=== PATIENT | male | born 1945 | race Caucasian/White ===

== ENCOUNTER 2020-07-29 11:06 | Emergency (ER) | payer OTHER, MEDICARE ==
--- NOTE | 2020-07-29 11:51 | ER Document Report ---
ED Medical Screen (RME) - General Chief Complaint: Penile Pain Stated Complaint: PENILE PAIN,SWELLING Time Seen by Provider: 07/29/20 11:44 - HPI Notes: 07/29/20 11:49 74-year-old male was not circumcised presents to emergency room today for having penile pain with urination urinary retention with a semierect penis for the last 4 days after he has been able to retract the foreskin after cleaning. Patient denies any male enhancement medications. Reports his last bowel movement was a few days ago which is normal for him. Patient reports pain is 3-5, throbbing achy. Reports he is having dysuria with urination I have greeted and performed a rapid initial assessment of this patient. A comprehensive ED assessment and evaluation of the patient, analysis of test results and completion of the medical decision making process will be conducted by additional ED providers. PHYSICAL EXAMINATION: GENERAL: Well-appearing, well-nourished and in no acute distress. HEAD: Atraumatic, normocephalic. CV: s1, s2 regular LUNGS: No respiratory distress Unable to do exam and pit due to lack of privacy and as well as examination bed. Patient will be examined by main side provider. - Related Data Allergies/Adverse Reactions: No Known Allergies Allergy (Verified 07/29/20 11:31) Past Medical History - Social History Frequency of alcohol use: None Drug Abuse: None Physical Exam - Vital signs Vitals: Temp Pulse Resp BP Pulse Ox 97.5 F 58 L 16 125/77 97 07/29/20 11:16 07/29/20 11:16 07/29/20 11:16 07/29/20 11:16 07/29/20 11:16 Course - Vital Signs Vital signs: Temp Pulse Resp BP Pulse Ox 97.5 F 58 L 16 125/77 97 07/29/20 11:16 07/29/20 11:16 07/29/20 11:16 07/29/20 11:16 07/29/20 11:16
[2020-07-29 12:45] LABS: APPEARANCE,URINE CLEAR; BILIRUBIN,URINE NEGATIVE (NEGATIVE); COLOR,URINE YELLOW; GLUCOSE, URINE NEGATIVE (NEGATIVE); KETONES,URINE NEGATIVE (NEGATIVE); LEUKOCYTE ESTERASE,URINE NEGATIVE (NEGATIVE); NITRITE,URINE NEGATIVE (NEGATIVE); PROTEIN,URINE NEGATIVE (NEGATIVE); URINE SPECIFIC GRAVITY 1.023
[2020-07-29] MEDS ORDERED: ONDANSETRON HCL INJ/PF 4 MG/2 ML SDV IV ONE (15:28)
[2020-07-29] MEDS ORDERED: FENTANYL CITRATE INJ/PF 100 MCG/2 ML AMPUL IV ONE (15:29)
[2020-07-29] MEDS ORDERED: FENTANYL CITRATE INJ/PF 100 MCG/2 ML AMPUL ONE (16:13)
--- NOTE | 2020-07-29 16:48 | ER Document Report ---
ED General - General Chief Complaint: Penile Pain Stated Complaint: PENILE PAIN,SWELLING Time Seen by Provider: 07/29/20 11:44 - HPI Notes: Chief complaint: Swelling of penis History of present illness: 74-year-old uncircumcised male with no primary care physician no regular medications no known allergies presenting now with 4-day history of swelling of the glans penis. He retracted his foreskin while bathing and has been unable to reduce this since that time. He complains of increased pain and swelling. He denies dysuria. He denies fever, chills, nausea or vomiting. - Related Data Allergies/Adverse Reactions: No Known Allergies Allergy (Verified 07/29/20 11:31) Past Medical History - General Information source: Patient - Social History Smoking Status: Never Smoker Frequency of alcohol use: None Drug Abuse: None Lives with: Spouse/Significant other Family History: Reviewed & Not Pertinent Patient has homicidal ideation: No - Medical History Medical History: Negative Surgical Hx: Negative Review of Systems - Review of Systems Notes: Constitutional: Negative for fever. HENT: Negative for sore throat. Eyes: Negative for visual changes. Cardiovascular: Negative for chest pain. Respiratory: Negative for shortness of breath. Gastrointestinal: Negative for abdominal pain, vomiting or diarrhea. Genitourinary: As per HPI. Musculoskeletal: Negative for back pain. Skin: Negative for rash. Neurological: Negative for headaches, weakness or numbness. 10 point ROS negative except as marked above and in HPI. Physical Exam - Vital signs Vitals: Temp Pulse Resp BP Pulse Ox 97.5 F 58 L 16 125/77 97 07/29/20 11:16 07/29/20 11:16 07/29/20 11:16 07/29/20 11:16 07/29/20 11:16 - Notes Notes: GENERAL: Slender elderly male appearing in no acute distress. SKIN: Good turgor no rashes. HEAD: Normocephalic atraumatic. EYES: PERRLA. EOMI. Conjunctivae and sclerae clear. EARS: CANALS AND TMS CLEAR. NOSE: CLEAR. MOUTH: Moist mucosa. Good dentition. No stridor or edema. No drooling. NECK: Supple. No masses or thyromegaly. No adenopathy. Carotids 2+ without bruits. No JVD. BACK: Symmetrical without tenderness. CHEST: Respirations unlabored. Breath sounds clear and symmetrical. HEART: Regular rhythm. No murmur gallop or rub. ABDOMEN: Soft nontender without masses, organomegaly or rebound. Bowel sounds normally active. No bruits. GENITALIA: Uncircumcised male. Patient has a tight paraphimosis with 3+ edema behind the head of the glans penis. The glans is well perfused with normal pink color and capillary refill present. EXTREMITIES: No edema. No calf tenderness. Cap refill less than 1.5 seconds. Dorsalis pedis and posterior tibial pulses 3+ and symmetrical. NEUROLOGICAL: GCS 15. Alert and oriented x3. Normal gait. Fluent speech. Cranial nerves II through XII intact. Sensorimotor and cerebellar normal. Normal tone. PSYCHIATRIC: Appropriate affect. Course - Re-evaluation Re-evalutation: 07/29/20 16:50 We applied ice to the genitalia to reduce swelling. Patient received some IV fentanyl and has been kept n.p.o. I have repeatedly attempted manipulation to reduce the paraphimosis without success. We do not have a urologist locally and advised patient that he will need transfer elsewhere. I placed a call to the on-call urologist at [facility] Dr. Bryant. Awaiting his return call at this time. 07/29/20 17:08 I spoke with the on-call urologist Dr. Bryant and he suggested that we try a ring block of the penis followed by wrapping the glans with Coban for about 10 minutes and then repeat an attempt at reduction. If we were able to reduce this successfully the patient may be discharged home for office follow-up. If we are unable to achieve reduction he will accept patient for transfer to [facility]. 07/29/20 17:55 Successful paraphimosis. Patient is advised to follow-up with Dr. Bryant from urology on outpatient basis. Findings, clinical impression and plan of treatment have been discussed with patient/family. Understanding of current findings and recommendations has been acknowledged by them and there is agreement regarding disposition and follow-up. - Vital Signs Vital signs: Temp Pulse Resp BP Pulse Ox 97.5 F 58 L 16 125/77 97 07/29/20 11:16 07/29/20 11:16 07/29/20 11:16 07/29/20 11:16 07/29/20 11:16 - Laboratory Laboratory results interpreted by me: 07/29/20 12:05 Urine Urobilinogen 2.0 H Procedures - Additional Procedures Reduction of Paraphimosis Additional Procedures: Other - Reduction of paraphimosis Ring block of penis 10 ml 1% plain lidocaine. Tight Coban wrap to glans penis and application of ice pack x10 minutes. Raad reduction then achieved w/o complications. Well tolerated by patient. Discharge - Discharge Clinical Impression: Paraphimosis Condition: Stable Disposition: HOME, SELF-CARE Additional Instructions: Apply ice packs intermittently to genital area as previously instructed. Do not attempt to retract the foreskin at this time. Apply ointment to the area of swelling around the head of the penis 3 times a day. Take [id number] medications such as Tylenol or ibuprofen as needed for pain. Schedule a follow-up visit with the urologist within the next 7 days. You may return to the emergency department as needed for any new or worsening problems. Referrals: RIKKI BRYANT MD [NO LOCAL MD] - Follow up as needed
[2020-07-29] MEDS ORDERED: LIDOCAINE 1% INJ (10 MG/ML) 10 ML MDV INJ ONE (17:04)
[2020-07-29] MEDS ORDERED: NITROGLYCERIN 2% OINTMENT 1 GM PACKET TP ONE (18:01)
[2020-07-29] MEDS ORDERED: LABETALOL HCL INJ 20 MG/4 ML DISP.SYRIN IV ONE (18:01)
[2020-07-29 18:13] VITALS: BP 124/70
== END 2020-07-29 18:13 | disposition home or self-care (01) ==
LOC: ER 11:06
DX: N47.2 Paraphimosis (principal)
CPT/HCPCS: 99284; 96374; 96375; 81001; J3010; J2405